=== PATIENT | male | born 1980 | race Hispanic/Latino ===

== ENCOUNTER 2023-03-20 08:39 | Emergency (ER) | payer OTHER ==
[~2023-03-20] VITALS: Ht 175.3 cm; Wt 90.7 kg
[2023-03-20 08:41] VITALS: BP 151/90
== END 2023-03-20 10:05 | disposition home or self-care (01) ==
LOC: EDH 08:39
DX: E11.9 Type 2 diabetes mellitus without complications (principal); M79.669 Pain in unspecified lower leg; Z98.890 Other specified postprocedural states; W34.00XA Accidental discharge from unspecified firearms or gun, initial encounter
CPT/HCPCS: 82948

== ENCOUNTER 2024-03-28 16:06 | Emergency (ER) | payer OTHER ==
[~2024-03-28] VITALS: Ht 175.3 cm; Wt 100.0 kg
[~2024-03-28 16:06] MED LIST: IBUP-2070 PO
[2024-03-28 16:23] VITALS: BP 138/89; PULSE 96; RESP 16
[2024-03-28 16:43] LABS: BASOPHILS # (AUTO) 0.07 K/uL (0.00-0.20); BASOPHILS % (AUTO) 0.6 % (0.0-5.0); EOSINOPHILS # (AUTO) 0.24 K/uL (0.00-0.70); EOSINOPHILS % (AUTO) 2.2 % (0.0-8.0); HEMATOCRIT 42.4 % (42-54); IMMATURE GRANULOCYTE ABSOLUTE 0.05 K/uL (0-1); LYMPHOCYTES # (AUTO) 1.8 K/uL (1.0-4.8); LYMPHOCYTES % (AUTO) 15.8 % (21.0-51.0); MEAN CORPUSCULAR HEMOGLOBIN 30.7 pg (27.0-33.0); MEAN CORPUSCULAR VOLUME 90.4 fL (79-99); MONOCYTES # (AUTO) 0.7 K/uL (0.1-1.0); NEUTROPHILS # (AUTO) 8.3 K/uL (1.8-7.7); NEUTROPHILS % (AUTO) 74.9 % (40.0-77.0); PLATELET COUNT (AUTO) 255 K/uL (130-400); RED BLOOD CELL COUNT(AUTO) 4.69 MIL/uL (4.50-6.20); RED CELL DISTRIBUTION WIDTH 12.9 % (11.0-15.5); WHITE BLOOD COUNT (AUTO) 11.1 K/uL (4.8-10.8)
[2024-03-28 16:54] LABS: CREATININE 0.8 mg/dL (0.5-1.3)
[2024-03-28] MEDS ORDERED: BACL5TAB PO (18:27)
[2024-03-28] MEDS ORDERED: KETO10TA2 PO (18:27)
== END 2024-03-28 19:41 | disposition home or self-care (01) ==
LOC: EDH 16:06
DX: M25.512 Pain in left shoulder (principal); M25.511 Pain in right shoulder; M54.9 Dorsalgia, unspecified; M54.2 Cervicalgia; E11.9 Type 2 diabetes mellitus without complications; F17.200 Nicotine dependence, unspecified, uncomplicated; Z79.899 Other long term (current) drug therapy; Z98.890 Other specified postprocedural states; V89.2XXA Person injured in unspecified motor-vehicle accident, traffic, initial encounter; Y93.I9 Activity, other involving external motion; Y92.488 Other paved roadways as the place of occurrence of the external cause; Y99.8 Other external cause status
CPT/HCPCS: 36415; 70450; 80048; 84484; 85025; 93005